=== PATIENT | female | born 1955 | race Caucasian/White ===

== ENCOUNTER 2020-01-06 08:32 | Outpatient (CLI) | payer MEDICAID | END 2020-01-06 08:33 | disposition EMS.NT | LOC: EMS 08:32 | PROVIDERS: ATTEND Surgery | DX: R06.02 Shortness of breath (principal); R20.2 Paresthesia of skin ==

== ENCOUNTER 2020-02-26 16:11 | Outpatient (CLI) | payer MEDICAID | END 2020-02-26 16:12 | disposition home or self-care (01) | LOC: COV 16:11 | PROVIDERS: ATTEND Family Medicine | DX: R05 Cough (principal); M79.10 Myalgia, unspecified site; R53.83 Other fatigue; J02.9 Acute pharyngitis, unspecified; R19.7 Diarrhea, unspecified; J34.89 Other specified disorders of nose and nasal sinuses; Z20.828 Contact with and (suspected) exposure to other viral communicable diseases ==

== ENCOUNTER 2020-05-24 12:06 | Outpatient (CLI) | payer MEDICAID | END 2020-05-24 12:07 | disposition home or self-care (01) | LOC: COV 12:06 | PROVIDERS: ATTEND Family Medicine | DX: R50.9 Fever, unspecified (principal); R07.0 Pain in throat; R09.81 Nasal congestion; J34.89 Other specified disorders of nose and nasal sinuses; Z20.828 Contact with and (suspected) exposure to other viral communicable diseases ==

== ENCOUNTER 2021-12-07 10:26 | Outpatient (CLI) | payer MEDICAID, MEDICARE ==
[2021-12-07 14:43] LABS: BASOPHILS # (AUTO) 0.1 10^3/uL (0.0-0.1); EOSINOPHILS # (AUTO) 0.1 10^3/uL (0.0-0.7); HCT - HEMATOCRIT 43.4 % (37.0-47.0); HGB - HEMOGLOBIN 14.2 g/dL (12.0-16.0); LYMPHOCYTES # (AUTO) 1.9 10^3/uL (1.5-3.5); LYMPHOCYTES % (AUTO) 30.5 %; MEAN CORPUSCULAR HEMOGLOBIN 31.6 pg (27.0-31.0); MEAN CORPUSCULAR HGB CONC 32.7 g/dL (32.0-36.0); MEAN CORPUSCULAR VOLUME 96.4 fL (81.0-99.0); MEAN PLATELET VOLUME 10.3 fL (7.9-10.8); MONOCYTES # (AUTO) 0.7 10^3/uL (0.0-1.0); MONOCYTES % (AUTO) 11.2 %; NEUTROPHILS # (AUTO) 3.4 10^3/uL (1.5-6.6); PLT - PLATELET COUNT 215 10^3/uL (130-450); RED CELL DISTRIBUTION WIDTH 13.9 % (12.0-15.0); WHITE BLOOD COUNT 6.1 x10^3/uL (4.8-10.8)
[2021-12-07 15:40] LABS: THYROID STIMULATING HORMONE 1.04 uIU/mL (0.34-5.60)
[2021-12-07 16:11] LABS: ALBUMIN 4.1 g/dL (3.2-5.5); ALBUMIN/GLOBULIN RATIO 1.2 (1.0-2.2); ALKALINE PHOSPHATASE 82 IU/L (42-121); ALT ALANINE AMINOTRANSFERASE 22 IU/L (10-60); AST ASPARTATE AMINOTRANSFERASE 20 IU/L (10-42); BILIRUBIN,TOTAL 0.6 mg/dL (0.2-1.0); BUN - BLOOD UREA NITROGEN 13 mg/dL (6-20); CALCIUM 9.7 mg/dL (8.5-10.3); CARBON DIOXIDE - CO2 25 mmol/L (21-32); CHLORIDE 102 mmol/L (101-111); CHOL/HDL RATIO 2.6 (<4.4); CHOLESTEROL 215 mg/dL; CREATININE 0.7 mg/dL (0.4-1.0); GFR - MDRD 84 (>89); GLUCOSE 122 mg/dL (70-100); HDL CHOLESTEROL 83 mg/dL; LDL CHOLESTEROL,CALCULATED 119 mg/dL; LDL/HDL RATIO 1.4 (<4.4); POTASSIUM 4.1 mmol/L (3.5-5.0); SODIUM 137 mmol/L (135-145); TOTAL PROTEIN 7.5 g/dL (6.7-8.2); TRIGLYCERIDES 66 mg/dL; VLDL CHOLESTEROL 13 mg/dL
== END 2021-12-07 10:27 | disposition home or self-care (01) ==
LOC: LAB.S 10:26
PROVIDERS: ATTEND Registered Nurse
DX: I10 Essential (primary) hypertension (principal); F17.200 Nicotine dependence, unspecified, uncomplicated; F10.10 Alcohol abuse, uncomplicated
CPT/HCPCS: 36415; 80053; 80061; 83721; 84443; 85025

== ENCOUNTER 2022-01-18 12:28 | Outpatient (CLI) | payer MEDICARE, MEDICAID ==
--- NOTE | 2022-01-19 10:34 | Ultrasound Report ---
PROCEDURE: Head or Neck Soft Tissue INDICATIONS: DYSPHAGIA TECHNIQUE: Real-time scanning was performed of the thyroid gland, with image documentation. COMPARISON: None FINDINGS: Bilateral cervical lymph nodes are visualized. These demonstrate reniform morphology with central fat ty hilum and normal cortical thickness. Largest on the right measures 1.3 x 0.4 x 0.9 cm. Largest on the left measures 1.2 x 0.3 x 1.0 cm. Right: Thyroid lobe measures 4.4 x 1.5 x 1.6 cm, and is homogeneous in echotexture. Left: Thyroid lobe measures 3.8 x 1.6 x 1.8 cm, and is homogenous in echotexture. Isthmus: 4 mm thick. Nodule number: One Location: Left superior/mid lateral Size: 1.5 x 1.2 x 1.1 cm. Composition: Solid Echogenicity: Isoechoic Shape: wider than tall. Margins: Hypoechoic halo Echogenic foci: Punctate Total points: 6 ACR TI-RADS category: 4 (moderately suspicious) Nodule number: Two Location: Left superior/medial Size: 0.7 x 0.5 x 0.5 cm. Composition: Solid Echogenicity: Isoechoic Shape: wider than tall. Margins: Hypoechoic halo Echogenic foci: None Total points: 3 ACR TI-RADS category: 3 (mildly suspicious) Nodule number: Three Location: Left inferior/medial Size: 0.5 x 0.4 x 0.5 cm. Composition: Solid Echogenicity: Hyperechoic Shape: wider than tall. Margins: Hypoechoic halo Echogenic foci: None Total points: 3 ACR TI-RADS category: 3 (mildly suspicious) Nodule number: Four Location: Partially exophytic off the left side of the isthmus Size: 1.4 x 0.7 x 1.1 cm. Composition: Solid Echogenicity: Hyperechoic Shape: wider than tall. Margins: Smooth Echogenic foci: None Total points: 3 ACR TI-RADS category: 3 (mildly suspicious) IMPRESSION: Multiple TI-RADS 3 and TI-RADS 4 nodules in the left thyroid lobe. Nodule 1 (left superi or/mid lateral) meets consensus criteria for fine-needle aspiration. ACR TI-RADS definitions and recommendations: TI-RADS 1 (benign): 0 points. FNA not needed. TI-RADS 2 (not suspicious): 2 points. FNA not needed. TI-RADS 3 (mildly suspicious): 3 points. "FNA if 2.5 cm or larger, follow up if 1.5 cm or larger (at 1, 3, and 5 years). TI-RADS 4 (moderately suspicious): 4-6 points. "FNA if 1.5 cm or larger, follow up if 1 cm or larger (at 1, 2, 3, and 5 years). TI-RADS 5 (highly suspicious): 7 points or more. "FNA if 1 cm or larger, follow up if 0.5 cm or larger (every year for 5 years). Reviewed by: Goldy Valdovinos MD on 01/19/2022 10:32 AM PDT Approved by: Goldy Valdovinos MD on 01/19/2022 10:32 AM PDT Station ID: [id number]
== END 2022-01-18 12:29 | disposition home or self-care (01) ==
LOC: DI 12:28
PROVIDERS: ATTEND Registered Nurse
DX: R13.10 Dysphagia, unspecified (principal); E04.2 Nontoxic multinodular goiter

== ENCOUNTER 2022-02-13 09:28 | Outpatient (CLI) | payer MEDICARE, MEDICAID ==
[~2022-02-13 09:28] MED LIST: lidocaine 1% 20 ML MDV ONE
[2022-02-13] MEDS ORDERED: lidocaine 1% 20 ML MDV SUBQ ONE (10:57)
--- NOTE | 2022-02-13 11:16 | Ultrasound Report ---
PROCEDURE: FNA Bx w/US Gnd 1st les INDICATIONS: Suspicious left thyroid TECHNIQUE: The indications, alternatives, benefits, risks, and complications of the procedure were explained to the patient. Written informed consent was obtained and placed in the chart. The area of interest wa s examined sonographically and a site was chosen for ultrasound guided percutaneous sampling. The sk in was prepared and draped in the usual fashion, and anesthetized with 1% lidocaine infiltrated from the skin down to the lesion. Multiple passes were then performed, with contents emptied into an appr [facility] pathology specimen container. A bandage was applied to the area of access at completion of t he study. COMPARISON: 01/18/2022 FINDINGS: Location(s) of lesion(s) sampled: Left superior thyroid lobe nodule [place]: 25 gauge hypodermic needles. Number of passes: Five Medications: 1% lidocaine for local anaesthesia. Complications: None. IMPRESSION: Successful ultrasound-guided left thyroid lobe nodule fine needle aspiration, with cytology results p ending. Reviewed by: James Mantilla MD on 02/13/2022 11:15 AM PDT Approved by: James Mantilla MD on 02/13/2022 11:15 AM PDT Station ID: [id number]
== END 2022-02-13 09:29 | disposition home or self-care (01) ==
LOC: DI 09:28
PROVIDERS: ATTEND Registered Nurse
DX: E04.1 Nontoxic single thyroid nodule (principal)
CPT/HCPCS: 10005